=== PATIENT | female | born 2000 | race Caucasian/White ===

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

== ENCOUNTER 2022-11-21 12:34 | Emergency (ER) | payer OTHER, SELFPAY ==
[2022-11-21 12:50] VITALS: BP 107/68; PULSE 66; RESP 17; TEMP 36.2; O2SAT 99; BMI 20.4
--- NOTE | 2022-11-21 12:50 | ED.ABDPAIN ---
HPI - Abdominal Pain General Chief Complaint: Abdominal Pain Stated Complaint: abd pain Time Seen by Provider: 11/21/22 16:16 Source: patient and old records reviewed Mode of arrival: ambulatory Limitations: no limitations History of Present Illness HPI narrative: hx of cyclical vomiting sick x 1 week still smokes due to anxiety - + n/v uses hot showers, has a new prescriber and is starting medications. aware of THC causing this feels terrible and weak. wants help. patient is very remorseful but feels dehydrated. she is trying to stop smoking. typical bout for her [place] elicited complaint: abdominal pain Pertinent past history: other (cyclical vomiting) Onset (ago): week(s) (1) Pain Consistency: constant Location: epigastric Severity: moderate Quality: cramping and aching Radiation: none Migration to: no migration Exacerbating factors: eating and movement Relieving factors: nothing Context: history of similar episodes Associated symptoms: nausea, vomiting and anorexia Related Data Previous Rx's Medication Instructions Recorded mirtazapine 15 mg tablet 15 mg PO BEDTIME #30 tabs 12/30/21 quetiapine 25 mg tablet 25 mg PO BEDTIME #30 tabs 12/30/21 ondansetron 4 mg disintegrating 4 mg PO Q8H PRN nausea and 11/21/22 tablet vomiting #20 tabs Allergies Allergy/AdvReac Type Severity Reaction Status Date / Time Penicillins [PENICILLINS] Allergy Intermediate ITCHY RED Verified 10/08/20 04:06 HIVES. Review of Systems Review of Systems Constitutional : No Weight loss, No Fever, No Chills ENT/Mouth : No sore throat, No Rhinorrhea Eyes: No Swelling, No Redness Cardiovascular : No Chest Pain, No SOB, NoEdema Respiratory : No Cough, No Sputum, No Wheezing Gastrointestinal : Positive Nausea, Positive Vomiting, no Diarrhea, positive abdominal Pain, No Hematochezia, No Melena Genitourinary : No Dysuria, No Urinary Frequency, No Hematuria, No Urgency Musculoskeletal : No joint pain, No Myalgias, No Joint Swelling Skin : No Skin Lesions, No rash Neuro : No Weakness, No Numbness, No Dizziness, No Headache Psych : No Anxiety/Panic, No Depression All other systems reviewed and are negative. [facility] Past Medical History Attestation statement: The following information was validated with the patient. Medical History Cannabinoid hyperemesis syndrome History of kidney stones PCOS (polycystic ovarian syndrome) Surgical History History of ankle surgery History of eye surgery History of wisdom tooth extraction Social History Social History Household Members: Other Household Members Other:: Father Alcohol intake: current Alcohol intake frequency: holidays/special occasions only Patient Tobacco Use Status: Never used Tobacco Tobacco use type: Smokeless Tobacco Second Hand Smoke Exposure: No Use of substances other than those prescribed or required for medical reasons: Yes Substance Use Type: Marijuana Substance Use Frequency: Daily Advance Directives: No Advance Directives Information Provided: Yes Physical Exam ED Vital Signs: Vital Signs - 24 hr 11/21/22 12:50 11/21/22 15:15 Temperature 97.2 F 98.8 F Pulse Rate 66 61 Respiratory Rate 17 18 Blood Pressure 107/68 118/65 Pulse Oximetry 99 98 Oxygen Delivery Method Room Air Room Air BMI result Body Mass Index 20.4 Appearance: Alert. Oriented X3. No acute distress. Eyes: Pupils equal, round and reactive to light. ENT: Pharynx dry MM Neck: Normal inspection. Neck supple. CVS: Normal heart rate and rhythm. Pulses normal. Respiratory: No respiratory distress. Breath sounds normal. Abdomen: Soft and mild epigastric ttp no rebound Skin: Skin warm and dry. Normal skin color. Extremities: No lower extremity edema. No calf ttp Neuro: Oriented X 3. No motor deficit. No sensory deficit. Course Course Course Narrative: This is an RME: Additional HPI, ROS, PE not included below will be deferred to primary provider. Patient is a 22-year-old female who presents emergency department for evaluation of abdominal pain, nausea, vomiting, poor PO intake for the past week. Reports known history of cannabinoid hyperemesis syndrome, she was trying to avoid coming back to emergency department for her symptoms but they are becoming unbearable, she continues to smoke marijuana despite knowing this. Denies fever, upper respiratory symptoms. Plan: labs, U/A, hCG, placed in waiting room pending bed availability Reevaluation(s) Reevaluation #1: feels better stable for DC Medical Decision Making Medical Decision Making MDM Narrative: 22 yo female with hx of THC induced cyclical vomiting syndrome coming in with n/v typical and epigastric pain that responds to hot showers at this time will obtain basic labs and give IVF and hydrate will provide supportive medications. the patient has no localizing symptoms to suggest appendicitis or cholecystitis. Differential Diagnosis Differential Diagnoses: The differential diagnosis associated with the presentation includes anxiety, viral syndrome, THC induced vomiting syndrome Admission/Observation Consideration of admission/observation: Escalation of care including admission/observation considered able to tolerate PO labs stable VS stable can be managed as outpatient Lab Data MDM Lab Attestation statement: I reviewed the patient's lab results. 11/21/22 13:02 11/21/22 13:02 Labs: Lab Results 11/21/22 11/21/22 11/21/22 Range/Units 13:02 13:02 13:02 WBC 8.8 (4.8-10.8) X10*3/uL RBC 4.37 (4.20-5.50) X10*6/uL Hgb 14.1 (12.0-16.0) g/dl Hct 41.1 (37.0-47.0) % MCV 94.1 (80.0-98.0) fL MCH 32.3 (27.0-33.0) pg MCHC 34.3 (31.0-35.0) g/dl RDW 11.9 (11.0-16.0) % Plt Count 231 (160-400) X10*3/uL MPV 9.6 (9.4-12.3) fL Immature Gran % (Auto) 0.2 (0.0-0.4) % Neut % (Auto) 88.2 H (45-73) % Lymph % (Auto) 9.7 L (20-40) % [place] % (Auto) 1.6 L (2-11) % Eos % (Auto) 0.0 (0-4) % Baso % (Auto) 0.3 (0-2) % Lymph # (Auto) 0.9 L (1.2-4.9) X10*3/uL [place] # (Auto) 0.1 (0.1-1.2) X10*3/uL Eos # (Auto) 0.0 (0.0-0.4) X10*3/uL Baso # (Auto) 0.0 (0.0-0.2) X10*3/uL Abs Immat Gran (auto) 0.02 (0.00-0.03) X10*3/uL Absolute Neuts (auto) 7.7 (2.0-8.3) x10*3/uL Absolute Nucleated RBC 0.000 (0.0-0.012) X10*3/uL Nucleated RBC % (auto) 0.0 (0.0-0.2) /100WBC Sodium 142 (135-145) mmol/L Potassium 4.6 D (3.3-5.1) mmol/L Chloride 108 (96-108) mmol/L Carbon Dioxide 22 (22-29) mmol/L Anion Gap 17 (12-20) BUN 10 (9-16) mg/dL Creatinine 0.77 (0.5-1.4) mg/dL Estim Creat Clear Calc 92.1 Estimated GFR > 60 Random Glucose 117 H (60-115) mg/dL Calcium 10.3 H (8.4-10.2) mg/dL Total Bilirubin 0.9 (0.0-1.0) mg/dL AST 13 (5-31) U/L ALT 10 (0-31) U/L Alkaline Phosphatase 61 (39-117) U/L Total Protein 7.9 (6.5-8.0) g/dL Albumin 5.0 (3.5-5.0) g/dL Lipase 18 (8-78) U/L Urine Color Yellow Urine Appearance Cloudy Urine pH 6.5 (5.0-9.0) Ur Specific [place] >= 1.030 H (1.005-1.025) Urine Protein Trace (Neg-Trace) mg/dL Urine Glucose (UA) Negative (Negative) mg/dL Urine Ketones 80 (Negative) mg/dL Urine Blood Large (3+) H (Negative) Urine Nitrite Negative (Negative) Ur Leukocyte Esterase Negative (Negative) Urine RBC >20 H (0-2) /HPF Urine WBC 0-5 (0-5) /HPF Ur Squamous Epith Cells 6-10 (0-2) /HPF Urine Bacteria None Seen (None Seen) Hyaline Casts 3-5 (0-2) /LPF Urine Test (NEGATIVE) 11/21/22 Range/Units 13:02 WBC (4.8-10.8) X10*3/uL RBC (4.20-5.50) X10*6/uL Hgb (12.0-16.0) g/dl Hct (37.0-47.0) % MCV (80.0-98.0) fL MCH (27.0-33.0) pg MCHC (31.0-35.0) g/dl RDW (11.0-16.0) % Plt Count (160-400) X10*3/uL MPV (9.4-12.3) fL Immature Gran % (Auto) (0.0-0.4) % Neut % (Auto) (45-73) % Lymph % (Auto) (20-40) % [place] % (Auto) (2-11) % Eos % (Auto) (0-4) % Baso % (Auto) (0-2) % Lymph # (Auto) (1.2-4.9) X10*3/uL [place] # (Auto) (0.1-1.2) X10*3/uL Eos # (Auto) (0.0-0.4) X10*3/uL Baso # (Auto) (0.0-0.2) X10*3/uL Abs Immat Gran (auto) (0.00-0.03) X10*3/uL Absolute Neuts (auto) (2.0-8.3) x10*3/uL Absolute Nucleated RBC (0.0-0.012) X10*3/uL Nucleated RBC % (auto) (0.0-0.2) /100WBC Sodium (135-145) mmol/L Potassium (3.3-5.1) mmol/L Chloride (96-108) mmol/L Carbon Dioxide (22-29) mmol/L Anion Gap (12-20) BUN (9-16) mg/dL Creatinine (0.5-1.4) mg/dL Estim Creat Clear Calc Estimated GFR Random Glucose (60-115) mg/dL Calcium (8.4-10.2) mg/dL Total Bilirubin (0.0-1.0) mg/dL AST (5-31) U/L ALT (0-31) U/L Alkaline Phosphatase (39-117) U/L Total Protein (6.5-8.0) g/dL Albumin (3.5-5.0) g/dL Lipase (8-78) U/L Urine Color Urine Appearance Urine pH (5.0-9.0) Ur Specific [place] (1.005-1.025) Urine Protein (Neg-Trace) mg/dL Urine Glucose (UA) (Negative) mg/dL Urine Ketones (Negative) mg/dL Urine Blood (Negative) Urine Nitrite (Negative) Ur Leukocyte Esterase (Negative) Urine RBC (0-2) /HPF Urine WBC (0-5) /HPF Ur Squamous Epith Cells (0-2) /HPF Urine Bacteria (None Seen) Hyaline Casts (0-2) /LPF Urine Test NEGATIVE (NEGATIVE) Independent Historian Clinical information obtained from an independent historian. History obtained from or confirmed by: Spouse External Record Review External record reviewed: Inpatient record and Prior outpatient labs Prescription Management I considered prescription management with: Other (ODT zofran ) Medications Administered Discontinued Medications Generic Name Dose Route Start Last Admin Trade Name Paulq PRN Reason Stop Dose Admin Diphenhydramine HCl 25 mg 11/21/22 16:28 11/21/22 17:00 Diphenhydramine Hcl 50 Mg/Ml Vial IVPUSH 11/21/22 16:29 25 mg ONCE ONE Administration Haloperidol Lactate 5 mg 11/21/22 18:01 11/21/22 18:33 Haloperidol Lactate 5 Mg/Ml Vial IM 11/21/22 18:02 5 mg STAT STA Administration Sodium Chloride 1,000 mls @ 999 mls/hr 11/21/22 16:30 11/21/22 17:00 Ns IVCONT 11/21/22 17:30 999 mls/hr .Q1H1M CRISTINO Administration Sodium Chloride 1,000 mls @ 999 mls/hr 11/21/22 16:45 11/21/22 18:36 Ns IV 11/21/22 17:45 999 mls/hr .Q1H1M CRISTINO Administration Ketorolac Tromethamine 15 mg 11/21/22 16:33 11/21/22 17:00 Ketorolac Tromethamine 15 Mg/Ml Vial IVPUSH 11/21/22 16:34 15 mg ONCE ONE Administration Metoclopramide HCl 10 mg 11/21/22 16:28 11/21/22 17:00 Metoclopramide Hcl 10 Mg/2 Ml Vial IVPUSH 11/21/22 16:29 10 mg ONCE ONE Administration Discharge Plan Discharge Clinical Impression: Cyclical vomiting Patient Disposition: Home, Self-Care Instructions: Acute Nausea and Vomiting (ED) Additional Instructions: return for worsening symptoms, pain, fevers, black or bloody stools slowly advance diet as tolerated over the next couple of days Prescriptions: New ondansetron 4 mg tablet,disintegrating 4 mg PO Q8H PRN (Reason: nausea and vomiting) Qty: 20 0RF No Action mirtazapine 15 mg tablet 15 mg PO BEDTIME Qty: 30 0RF quetiapine 25 mg tablet 25 mg PO BEDTIME Qty: 30 0RF
[2022-11-21 13:08] LABS: MANUAL DIFF FLAG NO
[2022-11-21 13:10] LABS: Basophils Percent Auto 0.3 % (0-2); Hematocrit 41.1 % (37.0-47.0); Hemoglobin 14.1 g/dl (12.0-16.0); Imm Gran Abs Auto 0.02 X10*3/uL (0.00-0.03); Imm Gran Pct Auto 0.2 % (0.0-0.4); Lymphocytes Absolute Auto 0.9 X10*3/uL (1.2-4.9); Lymphocytes Percent Auto 9.7 % (20-40); Mean Corpuscular HGB Conc 34.3 g/dl (31.0-35.0); Mean Corpuscular Hemoglobin 32.3 pg (27.0-33.0); Mean Corpuscular Volume 94.1 fL (80.0-98.0); Mean Platelet Volume 9.6 fL (9.4-12.3); Monocytes Absolute Auto 0.1 X10*3/uL (0.1-1.2); Monocytes Percent Auto 1.6 % (2-11); Neutrophils Absolute Auto 7.7 x10*3/uL (2.0-8.3); Neutrophils Percent Auto 88.2 % (45-73); Platelet Count 231 X10*3/uL (160-400); Red Blood Count 4.37 X10*6/uL (4.20-5.50); Red Cell Distribution Width 11.9 % (11.0-16.0); White Blood Count 8.8 X10*3/uL (4.8-10.8)
[2022-11-21 13:19] LABS: Appearance Urine Cloudy; Color Urine Yellow; Glucose Urine UA Negative (Negative); Leukocyte Esterase Urine Negative (Negative); Nitrite Urine Negative (Negative); PH 6.5 (5.0-9.0); Specific Gravity - Urine >= 1.030 (1.005-1.025); UMIC TRIGGER UACC YES; Urine Blood Large (3+) (Negative); Urine Ketones 80 mg/dL (Negative); Urine Protein Trace mg/dL (Neg-Trace)
[2022-11-21 13:22] LABS: UPreg QC Valid YES; Urine Pregnancy NEGATIVE (NEGATIVE)
[2022-11-21 13:24] LABS: Bacteria Urine None Seen (None Seen); RBC Urine >20 /HPF (0-2); WBC Urine 0-5 /HPF (0-5)
[2022-11-21 13:25] LABS: Alanine Aminotransferase 10 U/L (0-31); Alkaline Phosphatase 61 U/L (39-117); Anion Gap 17 (12-20); Aspartate Amino Transferase 13 U/L (5-31); Bilirubin Total 0.9 mg/dL (0.0-1.0); Blood Urea Nitrogen 10 mg/dL (9-16); Calcium 10.3 mg/dL (8.4-10.2); Carbon Dioxide 22 mmol/L (22-29); Chloride 108 mmol/L (96-108); Creatinine Clr Calc Pharmacy 92.1; Estimated Glomerular Filt Rate > 60; Glucose Random 117 mg/dL (60-115); Lipase 18 U/L (8-78); Potassium 4.6 mmol/L (3.3-5.1); Sodium 142 mmol/L (135-145); Total Protein 7.9 g/dL (6.5-8.0)
[2022-11-21 15:15] VITALS: BP 118/65; PULSE 61; RESP 18; TEMP 37.1; O2SAT 98
[2022-11-21] MEDS: Ketorolac Tromethamine 15 MG/ML VIAL IVPUSH (17:00)
[2022-11-21] MEDS: diphenhydrAMINE HCL 50 MG/ML VIAL 25 MG IVPUSH (17:00)
[2022-11-21] MEDS: 0.9 % Sodium Chloride 1,000 ML 999 ML IVCONT (17:00)
[2022-11-21] MEDS: Metoclopramide HCl 10 MG/2 ML VIAL IVPUSH (17:00)
[2022-11-21] MEDS: Haloperidol Lactate 5 MG/ML VIAL IM (18:33)
[2022-11-21] MEDS: 0.9 % Sodium Chloride 1,000 ML 999 ML IV (18:36)
--- NOTE | 2022-11-21 18:40 | PC.NURSE ---
patient sleeping in bed, easily awakes to verbal stimulai. patient respirations equal and unlabored. patient has not had any more vomiting but states she is still nauseas
--- NOTE | 2022-11-21 19:10 | PC.NURSE ---
pt currently sleeping, easily woken. states nausea now resolved. agreeable to dc.
== END 2022-11-21 19:53 | disposition home or self-care (01) ==
PROVIDERS: Nurse Practitioner Family; Emergency Provider Emergency Medicine
DX: R11.15 Cyclical vomiting syndrome unrelated to migraine (principal); F12.90 Cannabis use, unspecified, uncomplicated; R10.13 Epigastric pain
CPT/HCPCS: 36415; 80053; 81001; 81025; 83690; 85025; 96361; 96372; 96374; 96375; 99284; 99285; J1200; J1885; J2765

== ENCOUNTER 2022-11-26 18:18 | Emergency (ER) | payer OTHER, SELFPAY ==
--- NOTE | ~2022-11-26 | CT_ITS ---
EXAMINATION: CT ABDOMEN AND PELVIS WITHOUT CONTRAST CLINICAL INFORMATION: Abdominal pain. COMPARISON: CT abdomen/pelvis 11/23/2021. TECHNIQUE: Multidetector volumetric imaging was performed from the superior aspect of the liver through the pubic symphysis. Sagittal and coronal reformatted images were obtained on the technologist's workstation. This CT examination was performed using dose optimization techniques as appropriate, variously including the following: *Automated exposure control *Adjustment of mA and/or kV according to patient size (this includes techniques or standardized protocols for targeted exams where dose is matched to indication/reason for exam; i.e. extremities or head) *Use of iterative reconstruction technique DLP: 283 mGy-cm FINDINGS: The lack of intravenous contrast limits evaluation of the solid visceral organs including the liver, spleen, pancreas, and kidneys. LUNG BASES: No focal consolidation or pleural effusion. LIVER, GALLBLADDER, AND BILIARY TREE: The liver is enlarged measuring 19 cm craniocaudally, unchanged. Otherwise, liver is normal in shape and attenuation. No focal hepatic lesion or biliary ductal dilatation is present. The gallbladder is unremarkable with no evidence of radiopaque gallstones, gallbladder wall thickening, or obvious pericholecystic inflammatory changes. PANCREAS: Limited noncontrast examination. No peripancreatic free fluid or fat stranding. No main duct dilatation. SPLEEN: Unremarkable. ADRENAL GLANDS: Unremarkable. KIDNEYS AND URETERS: Stable 5 mm calculus in the upper left kidney, 774 Hounsfield units located at 5 cm from the skin surface of the posterior axillary line. Similar degree of subtle hyperattenuation of the renal pyramids bilaterally. No hydronephrosis. No perinephric fat stranding. BLADDER: Decompressed limiting its evaluation. GASTROINTESTINAL TRACT: The small and large bowel are unremarkable. The appendix is unremarkable. ABDOMINAL WALL: No significant hernia is appreciated. LYMPH NODES: Lack of IV contrast and paucity of abdominal fat limits evaluation of lymph nodes, however accounting for these limitations, no discrete lymphadenopathy is noted. Mild diffuse peritoneal/mesenteric fatty haziness, for instance visualize superior to the urinary bladder and in the left lower abdomen on coronal image 27 series 6 is unchanged dating back to 10/08/2020. VASCULAR: Normal caliber abdominal aorta. PELVIC VISCERA: IUD in satisfactory positioning within the endometrial cavity. The ovaries are not well delineated in view of overlying loops of small bowel and lack of IV contrast, further evaluation with a pelvic ultrasound could be obtained as clinically indicated. OSSEOUS STRUCTURES: No acute or aggressive appearing osseous findings. CT/CT abdomen pelvis wo IV con IMPRESSION: 1. Stable nonobstructing 5 mm calculus in the upper left kidney. 2. Unchanged chronic hyperattenuation of the renal pyramids bilaterally could be seen with medullary nephrocalcinosis/medullary sponge kidney. 3. Unchanged mild hepatomegaly. 4. Chronic nonspecific mild diffuse peritoneal/mesenteric fatty haziness. 5. The ovaries are not well delineated in view of overlying loops of small bowel and lack of IV contrast, further evaluation with a pelvic ultrasound could be obtained as clinically indicated.
[2022-11-26 19:41] VITALS: BP 121/76; PULSE 65; RESP 18; TEMP 36.9; O2SAT 96; BMI 20.1
--- NOTE | 2022-11-26 19:42 | ED.GENADULT ---
HPI - General Adult General Chief complaint: Abdominal Pain Stated complaint: lower abd pain Time Seen by Provider: 11/26/22 21:21 Source: patient, RN notes reviewed and old records reviewed Mode of arrival: ambulatory Limitations: no limitations History of Present Illness HPI narrative: 22-year-old female with past medical history significant for polycystic ovarian syndrome, depression presents for evaluation of vomiting. Patient reports that she has been vomiting on and off for the last week She was seen here 5 days ago for a similar complaint and was diagnosed with cyclical vomiting She was ultimately discharged home with Isabelle Patient reports that she was doing well until she recently smoked a lot of marijuana She is unsure of the specific cause of her symptoms She reports mild abdominal pain Patient reports that her period just started but she denies any abnormal vaginal discharge She has no other complaints or concerns at this time Related Data Previous Rx's Medication Instructions Recorded mirtazapine 15 mg tablet 15 mg PO BEDTIME #30 tabs 12/30/21 quetiapine 25 mg tablet 25 mg PO BEDTIME #30 tabs 12/30/21 ondansetron 4 mg disintegrating 4 mg PO Q8H PRN nausea and 11/21/22 tablet vomiting #20 tabs promethazine 12.5 mg rectal 12.5 mg OK Q6H PRN nausea and 11/26/22 suppository vomiting #12 ea Allergies Allergy/AdvReac Type Severity Reaction Status Date / Time Penicillins [PENICILLINS] Allergy Intermediate ITCHY RED Verified 10/08/20 04:06 HIVES. Review of Systems Constitutional: Constitutional: Reports as per HPI, Denies fatigue, Denies fever(s) and Denies headache(s) ENT: Denies headache(s) Cardiovascular: Cardiovascular: Denies chest pain and Denies dyspnea Respiratory: Respiratory: Denies cough and Denies dyspnea Gastrointestinal: Gastrointestinal: Denies constipation Genitourinary: Genitourinary: Denies dysuria Neurologic: Denies headache(s) and Denies focal weakness Endocrine: Endocrine: Denies fatigue COUNT INCLUDES THE [facility] Past Medical History Medical History Cannabinoid hyperemesis syndrome History of kidney stones PCOS (polycystic ovarian syndrome) Surgical History History of ankle surgery History of eye surgery History of wisdom tooth extraction Social History Social History Household Members: Other Household Members Other:: Father Alcohol intake: current Alcohol intake frequency: holidays/special occasions only Patient Tobacco Use Status: Never used Tobacco Tobacco use type: Smokeless Tobacco Second Hand Smoke Exposure: No Substance Use Type: Marijuana Advance Directives: No Advance Directives Information Provided: Yes Physical Exam ED Vital Signs: Vital Signs - 24 hr 11/26/22 19:41 11/26/22 21:17 Temperature 98.4 F 99.0 F Pulse Rate 65 63 Respiratory Rate 18 16 Blood Pressure 121/76 120/74 Pulse Oximetry 96 98 Oxygen Delivery Method Room Air Room Air BMI result Body Mass Index 20.1 Const General: healthy appearing, comfortable, no acute distress, alert and awake Nutritional Appearance: well nourished Orientation/consciousness: patient oriented x3 HENMT Head: Yes normocephalic and Yes atraumatic Eyes Eyelids: Yes eyelids normal Conjunctivae: conjunctivae normal Sclerae: sclerae normal Corneas: corneas normal Pupils: Equal, round and reactive pupils present EOM: EOMs intact bilaterally Neck Neck: Yes full ROM Resp Effort & Inspection: normal respiratory effort, able to speak in complete sentences and not labored Cardio Rate: regular rate Rhythm: regular rhythm GI Inspection: No distended Palpation (GI): Soft to palpation, not firm, Tenderness to palpation present (GI) in the LUQ, no guarding and not rigid Auscultation: normoactive bowel sounds Skin General skin exam: no rashes or lesions noted and elasticity normal Neuro General: patient oriented x3 Cranial nerves: Yes Equal, round and reactive pupils present and Yes Bilaterally intact EOM present Cognition (Neuro): normal cognition Extrem Other: Moving all extremities well without any obvious deformities Course Course Course Narrative: This is an RME: Additional HPI, ROS, PE not included below will be deferred to primary provider. This is a 4-spyj-zak, hx of cyclical vomiting syndrome and kidney stones, presenting to the emergency department with complaints of left sided abdominal pain. Patient admits to having dark urine and urinary frequency. She has had nausea and vomiting. Was seen here on 11/21 diagnosed with cyclical vomiting. She has a history of kidney stones and states that her symptoms are similar. Vital signs stable Plan: Labs, UA, CT abdomen Reevaluation(s) Reevaluation #1: Patient reports feeling much better, she has not vomited since before treatment. Will discharge the patient home with rectal Phenergan. She has ODT Zofran, she is instructed to try that 1st and if she is still vomiting afterwards she may try the Phenergan. Time: 23:31 Medications Administered Discontinued Medications Generic Name Dose Route Start Last Admin Trade Name Samara PRN Reason Stop Dose Admin Diphenhydramine HCl 25 mg 11/26/22 21:26 11/26/22 21:55 Diphenhydramine Hcl 50 Mg/Ml Vial IVPUSH 11/26/22 21:27 25 mg ONCE ONE Administration Haloperidol Lactate 5 mg 11/26/22 21:26 11/26/22 21:56 Haloperidol Lactate 5 Mg/Ml Vial IM 11/26/22 21:27 5 mg STAT STA Administration Sodium Chloride 1,000 mls @ 999 mls/hr 11/26/22 21:30 11/26/22 21:56 Ns IV 11/26/22 22:30 999 mls/hr .Q1H1M CRISTINO Administration Ondansetron HCl 4 mg 11/26/22 21:21 11/26/22 21:56 Ondansetron Hcl 4 Mg/2 Ml Vial IVPUSH 11/26/22 21:22 4 mg ONCE ONE Administration Medical Decision Making Medical Decision Making [facility] Narrative: 22 Year old female presents for evaluation of vomiting. She was seen here recently for same. I reviewed that chart. The patient appears quite well with stable vital signs. Her abdominal exam is reassuring. She does have some mild tenderness the left upper quadrant but is nondistended, no guarding or firmness to the abdomen. Her labs are reassuring. Will treat her with Zofran, Haldol and Benadryl. Patient will be re-evaluated. That smoking marijuana. I do not see any emergent indication for imaging at this time Differential Diagnosis Differential Diagnoses: The differential diagnosis associated with the presentation includes Cyclic vomiting syndrome Acute nausea and vomiting Gastroenteritis Ileus Obstruction Lab Data [facility] Lab Attestation statement: I reviewed the patient's lab results. No leukocytosis with a white count 8.6, essentially unchanged from 5 days ago. No anemia. Electrolytes within normal limits, renal function within normal limits. The patient is not 11/26/22 20:09 11/26/22 20:09 Labs: Lab Results 11/26/22 11/26/22 11/26/22 Range/Units 20:09 20:09 20:09 WBC 8.6 (4.8-10.8) X10*3/uL RBC 4.75 (4.20-5.50) X10*6/uL Hgb 15.4 (12.0-16.0) g/dl Hct 43.5 (37.0-47.0) % MCV 91.6 (80.0-98.0) fL MCH 32.4 (27.0-33.0) pg MCHC 35.4 H (31.0-35.0) g/dl RDW 12.0 (11.0-16.0) % Plt Count 246 (160-400) X10*3/uL MPV 9.4 (9.4-12.3) fL Immature Gran % (Auto) 0.1 (0.0-0.4) % Neut % (Auto) 75.5 H (45-73) % Lymph % (Auto) 19.0 L (20-40) % Bartholomew % (Auto) 5.1 (2-11) % Eos % (Auto) 0.1 (0-4) % Baso % (Auto) 0.2 (0-2) % Lymph # (Auto) 1.6 (1.2-4.9) X10*3/uL Bartholomew # (Auto) 0.4 (0.1-1.2) X10*3/uL Eos # (Auto) 0.0 (0.0-0.4) X10*3/uL Baso # (Auto) 0.0 (0.0-0.2) X10*3/uL Abs Immat Gran (auto) 0.01 (0.00-0.03) X10*3/uL Absolute Neuts (auto) 6.5 (2.0-8.3) x10*3/uL Absolute Nucleated RBC 0.000 (0.0-0.012) X10*3/uL Nucleated RBC % (auto) 0.0 (0.0-0.2) /100WBC Sodium 140 (135-145) mmol/L Potassium 4.1 (3.3-5.1) mmol/L Chloride 105 (96-108) mmol/L Carbon Dioxide 24 (22-29) mmol/L Anion Gap 15 (12-20) BUN 9 (9-16) mg/dL Creatinine 0.76 (0.5-1.4) mg/dL Estim Creat Clear Calc 93.0 Estimated GFR > 60 Random Glucose 89 (60-115) mg/dL Calcium 10.0 (8.4-10.2) mg/dL Total Bilirubin 1.0 (0.0-1.0) mg/dL Direct Bilirubin 0.3 (0.0-0.5) mg/dL AST 11 (5-31) U/L ALT 9 (0-31) U/L Alkaline Phosphatase 57 (39-117) U/L Total Protein 7.7 (6.5-8.0) g/dL Albumin 4.8 (3.5-5.0) g/dL Lipase 16 (8-78) U/L Beta HCG, Quant mIU/mL Urine Color Yellow Urine Appearance Cloudy Urine pH 6.0 (5.0-9.0) Ur Specific Elk 1.025 (1.005-1.025) Urine Protein Negative (Neg-Trace) mg/dL Urine Glucose (UA) Negative (Negative) mg/dL Urine Ketones 80 (Negative) mg/dL Urine Blood Moderate (2+) H (Negative) Urine Nitrite Negative (Negative) Ur Leukocyte Esterase Trace H (Negative) Urine RBC >20 H (0-2) /HPF Urine WBC 6-10 H (0-5) /HPF Ur Squamous Epith Cells 6-10 (0-2) /HPF Urine Bacteria None Seen (None Seen) Hyaline Casts 3-5 (0-2) /LPF Urine Test (NEGATIVE) 11/26/22 11/26/22 Range/Units 20:14 20:14 WBC (4.8-10.8) X10*3/uL RBC (4.20-5.50) X10*6/uL Hgb (12.0-16.0) g/dl Hct (37.0-47.0) % MCV (80.0-98.0) fL MCH (27.0-33.0) pg MCHC (31.0-35.0) g/dl RDW (11.0-16.0) % Plt Count (160-400) X10*3/uL MPV (9.4-12.3) fL Immature Gran % (Auto) (0.0-0.4) % Neut % (Auto) (45-73) % Lymph % (Auto) (20-40) % Bartholomew % (Auto) (2-11) % Eos % (Auto) (0-4) % Baso % (Auto) (0-2) % Lymph # (Auto) (1.2-4.9) X10*3/uL Bartholomew # (Auto) (0.1-1.2) X10*3/uL Eos # (Auto) (0.0-0.4) X10*3/uL Baso # (Auto) (0.0-0.2) X10*3/uL Abs Immat Gran (auto) (0.00-0.03) X10*3/uL Absolute Neuts (auto) (2.0-8.3) x10*3/uL Absolute Nucleated RBC (0.0-0.012) X10*3/uL Nucleated RBC % (auto) (0.0-0.2) /100WBC Sodium (135-145) mmol/L Potassium (3.3-5.1) mmol/L Chloride (96-108) mmol/L Carbon Dioxide (22-29) mmol/L Anion Gap (12-20) BUN (9-16) mg/dL Creatinine (0.5-1.4) mg/dL Estim Creat Clear Calc Estimated GFR Random Glucose (60-115) mg/dL Calcium (8.4-10.2) mg/dL Total Bilirubin (0.0-1.0) mg/dL Direct Bilirubin (0.0-0.5) mg/dL AST (5-31) U/L ALT (0-31) U/L Alkaline Phosphatase (39-117) U/L Total Protein (6.5-8.0) g/dL Albumin (3.5-5.0) g/dL Lipase (8-78) U/L Beta HCG, Quant < 2 mIU/mL Urine Color Urine Appearance Urine pH (5.0-9.0) Ur Specific Elk (1.005-1.025) Urine Protein (Neg-Trace) mg/dL Urine Glucose (UA) (Negative) mg/dL Urine Ketones (Negative) mg/dL Urine Blood (Negative) Urine Nitrite (Negative) Ur Leukocyte Esterase (Negative) Urine RBC (0-2) /HPF Urine WBC (0-5) /HPF Ur Squamous Epith Cells (0-2) /HPF Urine Bacteria (None Seen) Hyaline Casts (0-2) /LPF Urine Test NEGATIVE (NEGATIVE) Discharge Plan Discharge Clinical Impression: Cyclical vomiting Patient Disposition: Home, Self-Care Instructions: Cyclic Vomiting Syndrome (ED) Additional Instructions: Use the Zofran that your previously prescribed for any further nausea or vomiting You may use the Phenergan suppositories if her symptoms do not improve Avoid smoking marijuana Drink small sips, frequently throughout the day to stay well hydrated Follow-up with your primary doctor Prescriptions: New promethazine 12.5 mg suppository 12.5 mg OK Q6H PRN (Reason: nausea and vomiting) Qty: 12 0RF Rx Instructions: Do not take more than 4 doses in 1 day No Action mirtazapine 15 mg tablet 15 mg PO BEDTIME Qty: 30 0RF quetiapine 25 mg tablet 25 mg PO BEDTIME Qty: 30 0RF ondansetron 4 mg tablet,disintegrating 4 mg PO Q8H PRN (Reason: nausea and vomiting) Qty: 20 0RF Stand Alone Forms: Work/School Release
[2022-11-26 20:18] LABS: MANUAL DIFF FLAG NO
[2022-11-26 20:22] LABS: Basophils Percent Auto 0.2 % (0-2); Eosinophils Percent Auto 0.1 % (0-4); Hematocrit 43.5 % (37.0-47.0); Hemoglobin 15.4 g/dl (12.0-16.0); Imm Gran Abs Auto 0.01 X10*3/uL (0.00-0.03); Imm Gran Pct Auto 0.1 % (0.0-0.4); Lymphocytes Absolute Auto 1.6 X10*3/uL (1.2-4.9); Mean Corpuscular HGB Conc 35.4 g/dl (31.0-35.0); Mean Corpuscular Hemoglobin 32.4 pg (27.0-33.0); Mean Corpuscular Volume 91.6 fL (80.0-98.0); Mean Platelet Volume 9.4 fL (9.4-12.3); Monocytes Absolute Auto 0.4 X10*3/uL (0.1-1.2); Monocytes Percent Auto 5.1 % (2-11); Neutrophils Absolute Auto 6.5 x10*3/uL (2.0-8.3); Neutrophils Percent Auto 75.5 % (45-73); Platelet Count 246 X10*3/uL (160-400); Red Blood Count 4.75 X10*6/uL (4.20-5.50); White Blood Count 8.6 X10*3/uL (4.8-10.8)
[2022-11-26 20:24] LABS: Appearance Urine Cloudy; Color Urine Yellow; Glucose Urine UA Negative (Negative); Leukocyte Esterase Urine Trace (Negative); Nitrite Urine Negative (Negative); Specific Gravity - Urine 1.025 (1.005-1.025); UMIC TRIGGER UACC YES; Urine Blood Moderate (2+) (Negative); Urine Ketones 80 mg/dL (Negative); Urine Protein Negative (Neg-Trace)
[2022-11-26 20:28] LABS: UPreg QC Valid YES; Urine Pregnancy NEGATIVE (NEGATIVE)
[2022-11-26 20:35] LABS: Alanine Aminotransferase 9 U/L (0-31); Albumin Level 4.8 g/dL (3.5-5.0); Alkaline Phosphatase 57 U/L (39-117); Anion Gap 15 (12-20); Aspartate Amino Transferase 11 U/L (5-31); Bilirubin Direct 0.3 mg/dL (0.0-0.5); Blood Urea Nitrogen 9 mg/dL (9-16); Carbon Dioxide 24 mmol/L (22-29); Chloride 105 mmol/L (96-108); Estimated Glomerular Filt Rate > 60; Glucose Random 89 mg/dL (60-115); Lipase 16 U/L (8-78); Potassium 4.1 mmol/L (3.3-5.1); Sodium 140 mmol/L (135-145); Total Protein 7.7 g/dL (6.5-8.0)
[2022-11-26 20:42] LABS: HCG Quantitative < 2 mIU/mL
[2022-11-26 20:59] LABS: Bacteria Urine None Seen (None Seen); RBC Urine >20 /HPF (0-2); UACC Culture Trigger YES
[2022-11-26 21:17] VITALS: BP 120/74; PULSE 63; RESP 16; TEMP 37.2; O2SAT 98
[2022-11-26] MEDS: diphenhydrAMINE HCL 50 MG/ML VIAL 25 MG IVPUSH (21:55)
[2022-11-26] MEDS: Haloperidol Lactate 5 MG/ML VIAL IM (21:56)
[2022-11-26] MEDS: 0.9 % Sodium Chloride 1,000 ML 999 ML IV (21:56)
[2022-11-26] MEDS: ondansetron HCL 4 MG/2 ML VIAL IVPUSH (21:56)
== END 2022-11-26 23:54 | disposition home or self-care (01) ==
PROVIDERS: Physician Assistant Medical; Emergency Provider Emergency Medicine Emergency Medical Services
DX: R11.15 Cyclical vomiting syndrome unrelated to migraine (principal); R10.2 Pelvic and perineal pain; F12.99 Cannabis use, unspecified with unspecified cannabis-induced disorder; Z79.899 Other long term (current) drug therapy
CPT/HCPCS: 36415; 74176; 80048; 80076; 81001; 81025; 83690; 84702; 85025; 87086; 96361; 96372; 96374; 96375; 99284; J1200; J2405

== ENCOUNTER 2023-01-04 01:57 | Emergency (ER) | payer OTHER, SELFPAY ==
--- NOTE | ~2023-01-04 | XR_ITS ---
EXAMINATION: XR KNEE, LEFT CLINICAL INFORMATION: Pain. COMPARISON: None available. TECHNIQUE: Four views of the left knee. FINDINGS: No fracture or joint effusion. Alignment is anatomic. Joint spaces are maintained. No abnormal soft tissue calcification. XR/XR knee LT 4V IMPRESSION: No significant abnormality identified.
--- NOTE | ~2023-01-04 | XR_ITS ---
EXAMINATION: XR FOREARM, LEFT CLINICAL INFORMATION: Pain. COMPARISON: None available. TECHNIQUE: AP and lateral views of the left forearm were obtained. FINDINGS: The bones and soft tissues are normal. No fracture. Imaged portions of the elbow and wrist are unremarkable. XR/XR forearm LT 2V IMPRESSION: No significant abnormality identified.
[2023-01-04 02:01] VITALS: BP 103/57; PULSE 94; O2SAT 99
--- NOTE | 2023-01-04 02:06 | PC.NURSE ---
pt arrived with a c collar on. pt awake talking alert.
[2023-01-04 02:10] VITALS: BP 116/71; PULSE 80; RESP 12; TEMP 36.7; O2SAT 99; BMI 21.9
[2023-01-04 04:47] VITALS: BP 109/66; PULSE 75; RESP 18; TEMP 36.4; O2SAT 99
[2023-01-04] MEDS: Acetaminophen 325 MG TABLET 650 MG PO (04:48)
--- NOTE | 2023-01-04 04:50 | PC.NURSE ---
Pt self removed c-collar and ambulated with steady to the restroom. Reports pain, 11/26. Medicated with acetaminophen. Pending physician eval.
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
[2023-01-04 06:09] VITALS: BP 115/71; PULSE 74; RESP 12; O2SAT 99
[2023-01-04] MEDS: Ibuprofen 400 MG TABLET PO (06:11)
== END 2023-01-04 06:14 | disposition home or self-care (01) ==
PROVIDERS: Emergency Provider Emergency Medicine Emergency Medical Services
DX: S09.90XA Unspecified injury of head, initial encounter (principal); S00.83XA Contusion of other part of head, initial encounter; S50.12XA Contusion of left forearm, initial encounter; S80.02XA Contusion of left knee, initial encounter; V43.52XA Car driver injured in collision with other type car in traffic accident, initial encounter; Y93.9 Activity, unspecified; Y92.410 Unspecified street and highway as the place of occurrence of the external cause; Y99.9 Unspecified external cause status
CPT/HCPCS: 73090; 73564; 99283; 99284

== ENCOUNTER 2023-10-25 16:50 | Emergency (ER) | payer OTHER, SELFPAY ==
--- NOTE | 2023-10-25 | ECG_ITS ---
Test Reason : nausea Blood Pressure : / mmHG Vent. Rate : 075 BPM Atrial Rate : 088 BPM P-R Int : 134 ms QRS Dur : 074 ms QT Int : 360 ms P-R-T Axes : 043 067 036 degrees QTc Int : 402 ms Sinus rhythm with marked sinus arrhythmia Cannot rule out Anterior infarct , age undetermined Abnormal ECG No previous ECGs available Referred By: Generic ED Physician Electronically Signed By:Elmo Ruiz
--- NOTE | ~2023-10-25 | CT_ITS ---
EXAMINATION: CT ABDOMEN AND PELVIS WITH CONTRAST CLINICAL INFORMATION: Epigastric pain. COMPARISON: None available. TECHNIQUE: Multidetector volumetric images were obtained from the superior aspect of the liver through the pubic symphysis following administration 85 mL of Omnipaque 350 intravenous contrast. Sagittal and coronal reformatted images were obtained on the technologist's workstation. Oral contrast: No This CT examination was performed using dose optimization techniques as appropriate, variously including the following: *Automated exposure control *Adjustment of mA and/or kV according to patient size (this includes techniques or standardized protocols for targeted exams where dose is matched to indication/reason for exam; i.e. extremities or head) *Use of iterative reconstruction technique DLP: 330 mGy-cm FINDINGS: LUNG BASES: The visualized lung bases are unremarkable. LIVER, GALLBLADDER, AND BILIARY TREE: The liver is normal in size, shape, and attenuation. No focal hepatic lesion or biliary ductal dilatation is present. The gallbladder is unremarkable with no evidence of radiopaque gallstones, gallbladder wall thickening, or obvious pericholecystic inflammatory changes. PANCREAS: Unremarkable. SPLEEN: Unremarkable. ADRENAL GLANDS: Unremarkable. KIDNEYS AND URETERS: The kidneys are normal in size, shape, and attenuation. There is a 6 mm calculus midpole left kidney. There is no hydronephrosis. BLADDER: Unremarkable. GASTROINTESTINAL TRACT: The small and large bowel are unremarkable. The appendix is unremarkable. ABDOMINAL WALL: No significant hernia is appreciated. LYMPH NODES: Normal. VASCULAR: Unremarkable. PELVIC VISCERA: There is an IUD in place. OSSEOUS STRUCTURES: Unremarkable. CT/CT abdomen pelvis w IV con IMPRESSION: 1. No acute findings in the abdomen or pelvis. 2. 6 mm nonobstructing calculus midpole left kidney. Fleischner guidelines were followed.
[2023-10-25 17:10] VITALS: BP 121/79; PULSE 97; RESP 20; TEMP 37.2; O2SAT 100; BMI 23.3
[2023-10-25 17:35] LABS: MANUAL DIFF FLAG NO
[2023-10-25 17:39] LABS: Basophils Percent Auto 0.2 % (0-2); Hematocrit 39.7 % (37.0-47.0); Imm Gran Abs Auto 0.03 X10*3/uL (0.00-0.03); Imm Gran Pct Auto 0.3 % (0.0-0.4); Lymphocytes Absolute Auto 1.3 X10*3/uL (1.2-4.9); Lymphocytes Percent Auto 13.3 % (20-40); Mean Corpuscular HGB Conc 35.3 g/dl (31.0-35.0); Mean Corpuscular Hemoglobin 32.9 pg (27.0-33.0); Mean Corpuscular Volume 93.2 fL (80.0-98.0); Mean Platelet Volume 9.6 fL (9.4-12.3); Monocytes Absolute Auto 0.4 X10*3/uL (0.1-1.2); Monocytes Percent Auto 4.4 % (2-11); Neutrophils Absolute Auto 7.9 x10*3/uL (2.0-8.3); Neutrophils Percent Auto 81.8 % (45-73); Platelet Count 231 X10*3/uL (160-400); Red Blood Count 4.26 X10*6/uL (4.20-5.50); Red Cell Distribution Width 12.2 % (11.0-16.0); White Blood Count 9.7 X10*3/uL (4.8-10.8)
[2023-10-25 18:13] LABS: Alanine Aminotransferase 12 U/L (0-31); Albumin Level 5.4 g/dL (3.5-5.0); Alkaline Phosphatase 64 U/L (39-117); Anion Gap 17 (12-20); Aspartate Amino Transferase 19 U/L (5-31); Bilirubin Total 0.9 mg/dL (0.0-1.0); Blood Urea Nitrogen 17 mg/dL (9-16); Calcium 10.5 mg/dL (8.4-10.2); Carbon Dioxide 22 mmol/L (22-29); Chloride 106 mmol/L (96-108); Creatinine Clr Calc Pharmacy 102.6; Estimated Glomerular Filt Rate > 60; Ethanol < 10 mg/dL; Glucose Random 116 mg/dL (60-115); Magnesium 2.2 mg/dL (1.6-2.6); Potassium 3.9 mmol/L (3.3-5.1); Sodium 141 mmol/L (135-145); Total Protein 8.7 g/dL (6.5-8.0)
[2023-10-25 18:44] LABS: Amphetamine Screen Urine Not Detected (Not Detect); Barbiturates, Urine Not Detected (Not Detect); Benzodiazepines Screen Urine Not Detected (Not Detect); Buprenorphine Scr Not Detected (Not Detect); Cannabinoid Screen Urine POSITIVE (Not Detect); Cocaine Screen Urine Not Detected (Not Detect); Fentanyl, urine Not Detected (Not Detect); Methadone Screen, Urine Not Detected (Not Detect); Opiate Screen Urine Not Detected (Not Detect); Oxycodone Screen Urine Not Detected (Not Detect); Phencyclidine Screen Urine Not Detected (Not Detect)
[2023-10-25 21:47] LABS: Appearance Urine Clear; Glucose Urine UA Negative (Negative); Leukocyte Esterase Urine Negative (Negative); Nitrite Urine Negative (Negative); PH 5.5 (5.0-9.0); Specific Gravity - Urine >= 1.030 (1.005-1.025); UMIC TRIGGER UACC YES; Urine Blood Negative (Negative); Urine Ketones 80 mg/dL (Negative); Urine Protein 30 (1+) mg/dL (Neg-Trace)
--- NOTE | 2023-10-25 21:50 | ED.GENADULT ---
HPI - General Adult General Chief complaint: Nausea/Vomiting/Diarrhea Stated complaint: vomiting for 4 days Time Seen by Provider: 10/25/23 21:15 Source: patient Mode of arrival: ambulatory Limitations: no limitations History of Present Illness ED Provider: Manfred VALENZUELA HPI narrative: 23 yold female of major depressive disorder presents to the ED for epigastric abdominal pain, diarrhea, nausea and vomitting since drinking multipe rounds of alcohol on . Patient denies any chest pain, shortness of breath, fever, or chills Related Data Previous Rx's ?Medication ?Instructions ?Recorded mirtazapine 15 mg tablet 15 mg PO BEDTIME #30 tabs 12/30/21 quetiapine 25 mg tablet 25 mg PO BEDTIME #30 tabs 12/30/21 ondansetron 4 mg disintegrating 4 mg PO Q8H PRN nausea and 11/21/22 tablet vomiting #20 tabs promethazine 12.5 mg rectal 12.5 mg NC Q6H PRN nausea and 11/26/22 suppository vomiting #12 ea ibuprofen 400 mg tablet 400 mg PO TID PRN fever or pain 01/04/23 #30 tabs famotidine 20 mg tablet (Pepcid) 20 mg PO BID 10 days #20 tabs 10/26/23 Allergies Allergy/AdvReac Type Severity Reaction Status Date / Time Penicillins [PENICILLINS] Allergy Intermediate ITCHY RED Verified 10/25/23 17:14 HIVES. Review of Systems Review of Systems: Abdominal pain, diarrhea, Yes all other systems are reviewed and are negative PMFSH Past Medical History Medical History History of kidney stones Cannabinoid hyperemesis syndrome PCOS (polycystic ovarian syndrome) Surgical History History of eye surgery History of wisdom tooth extraction History of ankle surgery Social History Social History Household Members: Other Household Members Other:: Father Alcohol intake: current Alcohol intake frequency: does not drink Patient Tobacco Use Status: Never used Tobacco Tobacco use type: Smokeless Tobacco Smoked in Last 30 Days: No Second Hand Smoke Exposure: No Use of substances other than those prescribed or required for medical reasons: No Substance Use Type: Marijuana Advance Directives: No Advance Directives Information Provided: No Do you have a plan to hurt others: No Plan Physical Exam ED Vital Signs: Vital Signs - 24 hr 10/25/23 17:10 10/25/23 23:40 Temperature 98.9 F 98.5 F Pulse Rate 97 88 Respiratory Rate 20 16 Blood Pressure 121/79 107/67 Pulse Oximetry 100 98 Oxygen Delivery Method Room Air Room Air BMI result Body Mass Index 23.3 Const General: cooperative, healthy appearing, comfortable, no acute distress, well developed, alert, awake and Physically active Orientation/consciousness: patient oriented x3 [facility] Head: Yes normal to inspection, Yes No palpable skull fracture present, Yes normocephalic, Yes atraumatic and No abrasion Eyes General: appearance normal, both eyes and all related structures Neck Neck: Yes normal visual inspection, Yes full ROM, Yes no lymphadenopathy, Yes no meningeal signs, Yes trachea midline, Yes supple, No anterior neck swelling and No tender Chest Chest palpation & inspection: normal inspection of the chest and normal palpation of entire chest wall Resp Effort & Inspection: normal respiratory effort and able to speak in complete sentences Auscultation: clear to auscultation bilaterally Cardio Jugular venous distension: no JVD Heart sounds: S1 normal heart sound present and S2 normal heart sound present GI Inspection: Yes normal to inspection Palpation (GI): Soft to palpation, not firm, Tenderness to palpation present (GI) in the epigastrum (burning), no guarding and not rigid General: No CVA tenderness and Yes no CVA tenderness Back/Spine/Pelvis Back: no CVA tenderness, No CVA tenderness and No back tenderness Skin General skin exam: no rashes or lesions noted, elasticity normal and turgor normal Neuro General: patient oriented x3, gait normal, tone normal, moves all extremities, no meningeal signs, no focal motor deficits, CN's II-XI intact bilaterally and normal sensation to monofilament Extrem General: Yes normal to inspection, Yes full ROM and No capillary refill normal Psych Appearance: grossly normal, well kempt and not disheveled Medications Administered Discontinued Medications Generic Name Dose Route Start Last Admin Trade Name Freq PRN Reason Stop Dose Admin Al Hydroxide/Mg Hydroxide 30 ml 10/25/23 23:48 10/25/23 23:57 Magnesium Hydrox/Alum Hydrox 30 Ml Oral.Susp PO 07/08/24 23:49 30 ml ONCE ONE Administration Belladonna Alkaloids/Phenobarbital 10 ml 10/25/23 23:48 10/25/23 23:57 Phenobarb/Hyoscy/Atropine/Scop 10 Ml Elixir PO 10/25/23 23:49 10 ml ONCE ONE Administration Diphenhydramine HCl 50 mg 10/25/23 23:36 10/25/23 23:57 Diphenhydramine Hcl 50 Mg/Ml Vial IVPUSH 10/25/23 23:37 50 mg ONCE ONE Administration Famotidine 20 mg 10/25/23 21:47 10/25/23 22:08 Famotidine/Pf 20 Mg/2 Ml Vial IVPUSH 10/25/23 21:48 20 mg ONCE ONE Administration Sodium Chloride 1,000 mls @ 999 mls/hr 10/25/23 21:47 10/25/23 23:56 Ns IV 10/25/23 22:47 Infused .Q1H1M STA Infusion Sodium Chloride 1,000 mls @ 999 mls/hr 10/26/23 00:06 10/26/23 01:09 Ns IV 10/26/23 01:06 Infused .Q1H1M STA Infusion Iohexol 85 ml 10/26/23 00:31 10/26/23 00:31 Iohexol 350 Mg/Ml 100 Ml Infus..Btl IV 10/26/23 00:32 85 ml ONCE ONE Administration Lidocaine HCl 15 ml 10/25/23 23:48 10/25/23 23:57 Lidocaine Hcl Viscous 2 % 15 Ml Solution MUCOUS MEM 10/25/23 23:49 15 ml ONCE ONE Administration Ondansetron HCl 4 mg 10/25/23 21:47 10/25/23 22:08 Ondansetron Hcl 4 Mg/2 Ml Vial IVPUSH 10/25/23 21:48 4 mg ONCE ONE Administration Medical Decision Making Medical Decision Making MDM Narrative: 23-year-old female presents to ED for abdominal pain since drinking multiple rounds of alcohol on October 20 of diarrhea. Pain is in epigastric area. Patient states no fever or chills. Labs ordered. Pepcid Zofran fluids were. 2:21am: And GI cocktail. Abdominal CT scan negative for any acute etiologies. Shows 6 mm nonobstructive kidney pole stone. Patient explained worrisome signs and informed to return to the ED immeidatley. Symptoms due to alcoholic induced GERD. Not suspecting colitis, cholecystitis, pancreatitis, friction, or appendicitis. Differential Diagnosis Differential Diagnoses: The differential diagnosis associated with the presentation includes (Alcoholic gastritis, pancreatitis cholecystitis) Admission/Observation Consideration of admission/observation: Escalation of care including admission/observation considered Lab Data MDM Lab Attestation statement: I reviewed the patient's lab results. 10/25/23 17:32 10/25/23 17:32 Labs: Lab Results 10/25/23 10/25/23 Range/Units 17:32 18:22 WBC 9.7 (4.8-10.8) X10*3/uL RBC 4.26 (4.20-5.50) X10*6/uL Hgb 14.0 (12.0-16.0) g/dl Hct 39.7 (37.0-47.0) % MCV 93.2 (80.0-98.0) fL MCH 32.9 (27.0-33.0) pg MCHC 35.3 H (31.0-35.0) g/dl RDW 12.2 (11.0-16.0) % Plt Count 231 (160-400) X10*3/uL MPV 9.6 (9.4-12.3) fL Immature Gran % (Auto) 0.3 (0.0-0.4) % Neut % (Auto) 81.8 H (45-73) % Lymph % (Auto) 13.3 L (20-40) % [place] % (Auto) 4.4 (2-11) % Eos % (Auto) 0.0 (0-4) % Baso % (Auto) 0.2 (0-2) % Lymph # (Auto) 1.3 (1.2-4.9) X10*3/uL [place] # (Auto) 0.4 (0.1-1.2) X10*3/uL Eos # (Auto) 0.0 (0.0-0.4) X10*3/uL Baso # (Auto) 0.0 (0.0-0.2) X10*3/uL Abs Immat Gran (auto) 0.03 (0.00-0.03) X10*3/uL Absolute Neuts (auto) 7.9 (2.0-8.3) x10*3/uL Absolute Nucleated RBC 0.000 (0.0-0.012) X10*3/uL Nucleated RBC % (auto) 0.0 (0.0-0.2) /100WBC Sodium 141 (135-145) mmol/L Potassium 3.9 (3.3-5.1) mmol/L Chloride 106 (96-108) mmol/L Carbon Dioxide 22 (22-29) mmol/L Anion Gap 17 (12-20) BUN 17 H (9-16) mg/dL Creatinine 0.78 (0.5-1.4) mg/dL Estim Creat Clear Calc 102.6 Estimated GFR > 60 Random Glucose 116 H (60-115) mg/dL Calcium 10.5 H (8.4-10.2) mg/dL Magnesium 2.2 (1.6-2.6) mg/dL Total Bilirubin 0.9 (0.0-1.0) mg/dL AST 19 (5-31) U/L ALT 12 (0-31) U/L Alkaline Phosphatase 64 (39-117) U/L Total Protein 8.7 H (6.5-8.0) g/dL Albumin 5.4 H (3.5-5.0) g/dL Lipase 21 (8-78) U/L Beta HCG, Quant < 2 mIU/mL Urine Color Yellow Urine Appearance Clear Urine pH 5.5 (5.0-9.0) Ur Specific [place] >= 1.030 H (1.005-1.025) Urine Protein 30 (1+) H (Neg-Trace) mg/dL Urine Glucose (UA) Negative (Negative) mg/dL Urine Ketones 80 (Negative) mg/dL Urine Blood Negative (Negative) Urine Nitrite Negative (Negative) Ur Leukocyte Esterase Negative (Negative) Urine RBC 0-2 (0-2) /HPF Urine WBC 0-5 (0-5) /HPF Ur Squamous Epith Cells 0-2 (0-2) /HPF Calcium Oxalate Crystal Present Urine Bacteria None Seen (None Seen) Hyaline Casts 0-2 (0-2) /LPF Urine Opiates Screen Not Detected (Not Detect) Ur Buprenorphine Scrn Not Detected (Not Detect) ng/mL Ur Oxycodone Screen Not Detected (Not Detect) ng/mL Urine Methadone Screen Not Detected (Not Detect) ng/mL Urine Fentanyl Screen Not Detected (Not Detect) Ur Barbiturates Screen Not Detected (Not Detect) Ur Phencyclidine Scrn Not Detected (Not Detect) Ur Amphetamines Screen Not Detected (Not Detect) U Benzodiazepines Scrn Not Detected (Not Detect) Urine Cocaine Screen Not Detected (Not Detect) U Marijuana (THC) Screen POSITIVE H (Not Detect) Ethyl Alcohol < 10 mg/dL Independent Interpretation I performed an independent interpretation of an: CT Scan Radiology Impression Discussion of test interpretation with radiology: I have reviewed the radiologist's reading. Independent Historian Clinical information obtained from an independent historian. History obtained from or confirmed by: Other (Patient) External Record Review External record reviewed: Other (Prior visits) Prescription Management I considered prescription management with: Other (Antiacids) Discharge Plan Discharge Clinical Impression: Gastroesophageal reflux disease Patient Disposition: Home, Self-Care Instructions: Gastroesophageal Reflux Disease (ED) Additional Instructions: Return to the ED immediately for any severe abdominal pain, fever, chills, chest pain, shortness of breath, abdominal pain, back pain, dysuria, hematuria, or any other concerning symptoms. Recommend follow up with the primary care provider. Your labs were normal. CT scan did not show any acute abdominal etiology CT/CT abdomen pelvis w IV con IMPRESSION: 1. No acute findings in the abdomen or pelvis. 2. 6 mm nonobstructing calculus midpole left kidney. Fleischner guidelines were followed. Prescriptions: New famotidine [Pepcid] 20 mg tablet 20 mg PO BID 10 Days Qty: 20 0RF No Action mirtazapine 15 mg tablet 15 mg PO BEDTIME Qty: 30 0RF quetiapine 25 mg tablet 25 mg PO BEDTIME Qty: 30 0RF ibuprofen 400 mg tablet 400 mg PO TID PRN (Reason: fever or pain) Qty: 30 0RF ondansetron 4 mg tablet,disintegrating 4 mg PO Q8H PRN (Reason: nausea and vomiting) Qty: 20 0RF promethazine 12.5 mg suppository 12.5 mg NC Q6H PRN (Reason: nausea and vomiting) Qty: 12 0RF Rx Instructions: Do not take more than 4 doses in 1 day Stand Alone Forms: Work/School Release Print Language: [place]
[2023-10-25 21:51] LABS: Color Urine Yellow
[2023-10-25 22:01] LABS: Bacteria Urine None Seen (None Seen); Calcium Oxalate Crystals Urine Present; Hyaline Casts Urine 0-2 /LPF (0-2); RBC Urine 0-2 /HPF (0-2); Squamous Epithelial Cell Urine 0-2 /HPF (0-2); WBC Urine 0-5 /HPF (0-5)
[2023-10-25] MEDS: 0.9 % Sodium Chloride 1,000 ML 999 ML IV (22:04)
[2023-10-25] MEDS: ondansetron HCL 4 MG/2 ML VIAL IVPUSH (22:08)
[2023-10-25] MEDS: Famotidine/PF 20 MG/2 ML VIAL IVPUSH (22:08)
[2023-10-25 22:10] LABS: HCG Quantitative < 2 mIU/mL
[2023-10-25 22:15] LABS: Lipase 21 U/L (8-78)
[2023-10-25 23:40] VITALS: BP 107/67; PULSE 88; RESP 16; TEMP 36.9; O2SAT 98
[2023-10-25] MEDS: Magnesium Hydrox/Alum Hydrox 30 ML ORAL.SUSP PO (23:57)
[2023-10-25] MEDS: diphenhydrAMINE HCL 50 MG/ML VIAL IVPUSH (23:57)
[2023-10-25] MEDS: Lidocaine HCl Viscous 2 % 15 ML SOLUTION MUCOUS MEM (23:57)
[2023-10-25] MEDS: PHENobarb/Hyoscy/Atropine/Scop 10 ML ELIXIR PO (23:57)
[2023-10-26] MEDS: 0.9 % Sodium Chloride 1,000 ML 999 ML IV (00:08)
[2023-10-26] MEDS: iohexoL 350 MG/ML 100 ML INFUS..BTL 85 ML IV (00:31)
[2023-10-26 02:46] VITALS: BP 113/57; PULSE 54; RESP 17; TEMP 37.1; O2SAT 97
[2023-10-26 02:48] VITALS: BP 113/57; PULSE 54; RESP 17; TEMP 37.1; O2SAT 97
== END 2023-10-26 02:53 | disposition home or self-care (01) ==
PROVIDERS: Physician Assistant; Emergency Provider Internal Medicine
DX: K21.9 Gastro-esophageal reflux disease without esophagitis (principal); R11.2 Nausea with vomiting, unspecified; R10.13 Epigastric pain; I49.8 Other specified cardiac arrhythmias; R10.2 Pelvic and perineal pain; Z79.899 Other long term (current) drug therapy
CPT/HCPCS: 36415; 74177; 80053; 80307; 81001; 83690; 83735; 84702; 85025; 93005; 96361; 96374; 96375; 99284; 99285; J1200; J2405; Q9967

== ENCOUNTER → 2023-10-25 17:20 | Outpatient (BNV) | payer OTHER, SELFPAY | PROVIDERS: Emergency Provider Internal Medicine; Visit Provider Internal Medicine Cardiovascular Disease | DX: I49.8 Other specified cardiac arrhythmias (principal); R94.31 Abnormal electrocardiogram [ECG] [EKG]; R11.0 Nausea | CPT/HCPCS: 93010 ==

== ENCOUNTER 2023-12-15 12:07 | Outpatient (AMB) | payer OTHER, SELFPAY ==
--- NOTE | 2023-12-15 12:12 | MHC.OFFWIV ---
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 Intake Note: Sanjuana is a 23 year old female who presents to the office today for c/o a red inflamed bump on her right arm x2 months. Pt states it recently popped a week ago and white discharge came out of it. Pt states she has a hx of MRSA when she was a child. Patient Tobacco Use Status: Never used Tobacco Allergies Penicillins [PENICILLINS] Allergy (Intermediate, Verified 12/15/23 12:17) ITCHY RED HIVES. 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 HPI Details This note is constructed using voice recognition software. While every effort has been made to ensure accuracy, bridge carpenter errors may have been included. The patient is a 23 year old female who presents to the clinic today with concern for infection to right upper arm. She notes that she developed a bug bite approximately 2 months ago, which was followed by a red lump. About a week ago the area opened and drained thick white discharge, and since then redness has remained to the area with warmth. She was advised by a co-worker that she should be evaluated for this. She notes that she had MRSA as a child. She denies fever, chills, pain throughout the arm, but does note that the area itself is tender. She continues to do warm compresses to the area. [facility] Medical History History of kidney stones Cannabinoid hyperemesis syndrome PCOS (polycystic ovarian syndrome) Surgical History History of eye surgery History of wisdom tooth extraction History of ankle surgery Social History Household Members: Other Household Members Other:: Father Alcohol intake: current Alcohol intake frequency: does not drink Patient Tobacco Use Status: Never used Tobacco Tobacco use type: Smokeless Tobacco Second Hand Smoke Exposure: No Substance Use Type: Marijuana Review of Systems Const All systems reviewed & are unremarkable except as noted in HPI and below Physical Exam Vital Signs: Last Vital Signs Temp 98.3 F 12/15/23 12:15 Pulse 85 12/15/23 12:15 BP 118/74 12/15/23 12:15 Pulse Ox 98 12/15/23 12:15 Oxygen Delivery Method Room Air 12/15/23 12:15 BMI result Body Mass Index 22.7 Const General: cooperative, healthy appearing, comfortable, no acute distress and alert Orientation/consciousness: patient oriented x3 Limitations: no limitations Skin Other: 3 x 3 cm area right upper posterior arm area of induration with slight warmth. No obvious discharge present. General skin exam: elasticity normal and turgor normal Neuro General: patient oriented x3 Extrem General: Yes normal to inspection, Yes full ROM, Yes capillary refill normal and Yes normal exam except as noted Psych Appearance: grossly normal Mental Status: mental status grossly normal Speech and movement: Normal speech and movement present Affect: normal affect Assessment & Plan Assessment & Plan (1) Cellulitis: Code(s): L03.90 - Cellulitis, unspecified Qualifiers: Site of cellulitis: extremity Site of cellulitis of extremity: upper extremity Laterality: right Qualified Code(s): L03.113 - Cellulitis of right upper limb Plan: Treatment initiated with Bactrim for MRSA coverage infection. Advised patient to monitor for any worsening symptoms including erythematous streaking, fever as these would indicate worsening infection. Advised emergency room should she develop these as these would likely require IV antibiotics. She may also return to clinic for ongoing symptoms that do not improve with antibiotics. Advised NSAIDs for pain management. Patient agreed with plan of care. Plan See above for full details and plan. Medications: New sulfamethoxazole-trimethoprim 800-160 mg (Bactrim DS) 1 tab PO BID 5 days 10 tabs 0RF Discontinued mirtazapine Discontinued Reason: Patient no longer taking 15 mg PO BEDTIME 30 tabs 0RF quetiapine Discontinued Reason: Patient no longer taking 25 mg PO BEDTIME 30 tabs 0RF promethazine Do not take more than 4 doses in 1 day Discontinued Reason: Patient no longer taking 12.5 mg DE Q6H PRN 12 ea 0RF nausea and vomiting famotidine (Pepcid) Discontinued Reason: Patient no longer taking 20 mg PO BID 10 days 20 tabs 0RF Coding Level of Care Code Est Pt Level 3 (88098) Diagnoses Cellulitis of right upper extremity L03.113 Site of cellulitis: extremity Site of cellulitis of extremity: upper extremity Laterality: right
[2023-12-15 12:15] VITALS: BP 118/74; PULSE 85; TEMP 36.8; O2SAT 98; BMI 22.7
== END 2023-12-15 13:07 | disposition home or self-care (01) ==
PROVIDERS: Visit Provider Registered Nurse
DX: L03.113 Cellulitis of right upper limb (principal)
CPT/HCPCS: 99213

== ENCOUNTER 2024-04-25 14:51 | Emergency (ER) | payer OTHER, SELFPAY ==
--- NOTE | ~2024-04-25 | CT_ITS ---
CLINICAL HISTORY: LUQ pain, N V CT abdomen and pelvis with contrast Comparison: 10/26/2023 Findings: Motion artifact somewhat limits assessment. Lung bases are clear. No acute bony abnormalities. Liver and spleen within normal limits. Pancreas and adrenal glands unremarkable. Gallbladder partially contracted, grossly unremarkable. Small nonobstructing left renal stone. No bilateral ureteral stone or hydronephrosis. Abdominal aorta is normal in caliber. No free fluid or adenopathy in the pelvis. No acute diverticulitis. Appendix unremarkable. Uterus normal size with IUD. No adnexal abnormality. Impression: No acute process This document has been electronically signed by: Driss Marin MD on 04/25/2024 22:13:01
[2024-04-25 14:53] VITALS: BP 138/76; PULSE 91; RESP 16; TEMP 35.9; O2SAT 96; BMI 24.3
--- NOTE | 2024-04-25 17:35 | ECG_ITS ---
Test Reason : LUQ PAIN Blood Pressure : */* mmHG Vent. Rate : 72 BPM Atrial Rate : 72 BPM P-R Int : 126 ms QRS Dur : 74 ms QT Int : 360 ms P-R-T Axes : 73 87 55 degrees QTcB Int : 394 ms Normal sinus rhythm Normal ECG When compared with ECG of 25-Oct-2023 17:20, No significant change was found Referred By: Manfred Caraballo Electronically Signed By: RALPH TORRES
[2024-04-25 18:26] LABS: MANUAL DIFF FLAG NO
[2024-04-25 18:32] LABS: Basophils Percent Auto 0.4 % (0-2); Eosinophils Percent Auto 0.1 % (0-4); Hematocrit 39.3 % (37.0-47.0); Imm Gran Abs Auto 0.03 X10*3/uL (0.00-0.03); Imm Gran Pct Auto 0.3 % (0.0-0.4); Lymphocytes Percent Auto 9.6 % (20-40); Mean Corpuscular HGB Conc 35.6 g/dl (31.0-35.0); Mean Corpuscular Hemoglobin 32.2 pg (27.0-33.0); Mean Corpuscular Volume 90.3 fL (80.0-98.0); Mean Platelet Volume 9.4 fL (9.4-12.3); Monocytes Absolute Auto 0.3 X10*3/uL (0.1-1.2); Monocytes Percent Auto 3.2 % (2-11); Neutrophils Absolute Auto 9.2 x10*3/uL (2.0-8.3); Neutrophils Percent Auto 86.4 % (45-73); Platelet Count 240 X10*3/uL (160-400); Red Blood Count 4.35 X10*6/uL (4.20-5.50); Red Cell Distribution Width 11.9 % (11.0-16.0); White Blood Count 10.7 X10*3/uL (4.8-10.8)
[2024-04-25 18:39] LABS: INTERNATIONAL NORM RATIO 1.1 (0.9-1.1); Prothrombin Time 12.5 SEC (10.9-12.4)
[2024-04-25 18:42] LABS: Partial Thromboplastin Time 24.8 SEC (26.0-36.8)
[2024-04-25 18:53] LABS: Troponin-I High Sensitivity < 2.7 ng/L (<3.5-17.0)
[2024-04-25 20:11] LABS: Alanine Aminotransferase 7 U/L (0-31); Albumin Level 5.1 g/dL (3.5-5.0); Alkaline Phosphatase 59 U/L (39-117); Anion Gap 22 (12-20); Aspartate Amino Transferase 22 U/L (5-31); Blood Urea Nitrogen 13 mg/dL (9-16); Calcium 9.5 mg/dL (8.4-10.2); Carbon Dioxide 17 mmol/L (22-29); Chloride 103 mmol/L (96-108); Creatinine Clr Calc Pharmacy 112.6; Estimated Glomerular Filt Rate > 60; Glucose Random 88 mg/dL (60-115); Lipase 21 U/L (8-78); Potassium 3.6 mmol/L (3.3-5.1); Sodium 138 mmol/L (135-145); Total Protein 8.2 g/dL (6.5-8.0)
[2024-04-25 20:12] VITALS: BP 134/78; PULSE 90; RESP 18; TEMP 36.8; O2SAT 97
--- NOTE | 2024-04-25 20:14 | MHC.EDTECH ---
Patient brought in from the waiting room,introduced self to pt,vitals taken,pt ambulated with a steady gait to the bathroom,urine sample obtained and sent to lab
[2024-04-25 20:28] LABS: Appearance Urine Clear; Color Urine Yellow; Glucose Urine UA Negative (Negative); Leukocyte Esterase Urine Negative (Negative); Nitrite Urine Negative (Negative); PH 5.5 (5.0-9.0); Specific Gravity - Urine >= 1.030 (1.005-1.025); UMIC TRIGGER UACC YES; Urine Blood Small (1+) (Negative); Urine Ketones >=160 mg/dL (Negative); Urine Protein Trace mg/dL (Neg-Trace)
[2024-04-25 20:29] LABS: UPreg QC Valid YES; Urine Pregnancy NEGATIVE (NEGATIVE)
[2024-04-25 20:49] LABS: Bacteria Urine None Seen (None Seen); Hyaline Casts Urine 0-2 /LPF (0-2); RBC Urine 0-2 /HPF (0-2); WBC Urine 0-5 /HPF (0-5)
[2024-04-25] MEDS: iohexoL 350 MG/ML 100 ML INFUS..BTL 85 ML IV (21:28)
[2024-04-25] MEDS: 0.9 % Sodium Chloride 1,000 ML 999 ML IV (21:29)
[2024-04-25] MEDS: Ketorolac Tromethamine 15 MG/ML VIAL IVPUSH (21:29)
[2024-04-25] MEDS: ondansetron HCL 4 MG/2 ML VIAL IVPUSH (21:29)
--- NOTE | 2024-04-25 21:46 | ED_ITS ---
HPI - Abdominal Pain General Chief Complaint: Abdominal Pain Stated Complaint: Abd pain, nausea Time Seen by Provider: 04/25/24 21:03 Source: patient Mode of arrival: ambulatory Limitations: no limitations History of Present Illness ED Provider: Na Hercules NP HPI narrative: Patient is a 24-year-old female who presents to the emergency department for evaluation. She states she has been experiencing epigastric and left upper quadrant abdominal pain and nausea and vomiting for the past 1 week. She is not able to tolerate any oral intake by her account. She denies having constipation or diarrhea but states that her stools have been darker brown denies them to be black. Denies any bloody stool. Admits to a history of cannabinoid hyperemesis syndrome, she has sublingual Zofran at home but states that this never helps her. Typically her symptoms with cannabinoid hyperemesis last 4-5 days this has lasted longer. She does admit that she has had other individuals around her ill with respiratory and GI symptoms but none of which have lasted as long as hers. Denies fevers, chills, chest pain, hematemesis, dysuria, urinary frequency, urinary urgency, urinary hesitancy, hematuria. denies pelvic pain or abnormal vaginal discharge, states she has abnormal menstrual cycle due to PCOS does not recall LMP but denies concern for . Denies concern for sexually transmitted infection. Related Data Home Medications ?Medication ?Instructions ?Recorded ?Confirmed hydroxyzine HCl 25 mg tablet 25 mg PO BID 12/15/23 lamotrigine 25 mg tablet 50 mg PO DAILY 12/15/23 olanzapine 10 mg tablet 10 mg PO BEDTIME 12/15/23 propranolol 10 mg tablet 20 mg PO BID 12/15/23 Previous Rx's ?Medication ?Instructions ?Recorded ondansetron 4 mg disintegrating 4 mg PO Q8H PRN nausea and 11/21/22 tablet vomiting #20 tabs ibuprofen 400 mg tablet 400 mg PO TID PRN fever or pain 01/04/23 #30 tabs sulfamethoxazole 800 1 tab PO BID 5 days #10 tabs 12/15/23 mg-trimethoprim 160 mg tablet (Bactrim DS) ondansetron 4 mg disintegrating 4 mg PO Q8H PRN nausea and 04/26/24 tablet vomiting #10 tabs Allergies Allergy/AdvReac Type Severity Reaction Status Date / Time Penicillins [PENICILLINS] Allergy Intermediate ITCHY RED Verified 04/25/24 14:54 HIVES. Review of Systems Review of Systems Yes all other systems are reviewed and are negative [facility] Past Medical History Attestation statement: The following information was validated with the patient. Source: old records reviewed Medical History History of kidney stones Cannabinoid hyperemesis syndrome PCOS (polycystic ovarian syndrome) Surgical History History of eye surgery History of wisdom tooth extraction History of ankle surgery Social History Social History Household Members: Other Household Members Other:: Father Alcohol intake: current Alcohol intake frequency: does not drink Patient Tobacco Use Status: Never used Tobacco Tobacco use type: Smokeless Tobacco Second Hand Smoke Exposure: No Substance Use Type: Marijuana Physical Exam ED Vital Signs: Vital Signs - 24 hr 04/25/24 14:53 04/25/24 20:12 04/25/24 23:36 Temperature 96.7 F L 98.3 F 98.1 F Pulse Rate 91 90 85 Respiratory Rate 16 18 18 Blood Pressure 138/76 134/78 136/76 Pulse Oximetry 96 97 98 Oxygen Delivery Method Room Air Room Air Room Air 04/26/24 01:07 Temperature 98.1 F Pulse Rate 85 Respiratory Rate 18 Blood Pressure 136/76 Pulse Oximetry 98 Oxygen Delivery Method Room Air BMI result Body Mass Index 24.3 Appearance: Alert.?Oriented to person, place and time. No acute distress.?Normal affect.?? Neck: Normal inspection.? Neck supple.?? CVS: Heart sounds normal. Normal heart rate and rhythm.? Pulses normal.?? Respiratory: No respiratory distress.? Lung sounds clear to auscultation bilaterally?? Abdomen: Soft with epigastric and left upper quadrant tenderness upon palpation No rebound tenderness at McBurney's point. Negative psoas sign. Negative Rovsing sign. Negative Pino sign. No CVAT. Normoactive bowel sounds. No pulsatile mass.?? Skin: Skin warm and dry.? Normal skin color.? Extremities: No lower extremity edema.? Neuro: Moves all extremities spontaneously. Sensation intact bilaterally. Ambulates with normal steady gait. Medical Decision Making Medical Decision Making [facility] Narrative: Patient is a 24-year-old female with past medical history of cannabis induced hyperemesis syndrome, PCOS, nephrolithiasis who presents emergency department for evaluation of left upper quadrant abdominal pain over the past week with nausea and vomiting as per HPI. That home not tolerating oral intake. On evaluation she does have notable tenderness of the epigastrium left upper quadrant, no guarding or rebound tenderness. Clinical picture seems to favor cannabinoid hyperemesis syndrome versus gastroenteritis versus acute hepatobiliary etiology/acute pancreatitis. No associated chest pain shortness of breath or URI symptoms to suggest pneumonia, no clinical evidence of DVT or personal history of VTE/malignancy to suggest pulmonary embolism. No high-risk past medical history to suggest myocardial infarction and is without chest pain, less likely AAA, aortic dissection. No rebound tenderness at McBurney's point, rigidity, guarding to suggest acute appendicitis. No tenderness of the left lower quadrant nor associated nausea, vomiting, diarrhea, constipation, hematochezia or melena to suggest diverticulitis or GI bleed. No appreciable hernia to suggest strangulation/incarceration. Lower suspicion for bowel obstruction. No distention or rigidity to suggest GI perforation. No associated genitourinary symptoms to suggest UTI/pyelonephritis, renal colic, hydronephrosis. hCG is negative, unlikely ectopic , lower clinical suspicion for TOA/torsion given benign lower abdominal examination. Serum labs revealing no leukocytosis anemia or thrombocytopenia. No electrolyte derangement. LFTs and lipase within normal range. High sensitive troponin was below detectable limits. Urinalysis with 1+ microscopic hematuria no signs of infection, additionally concentrate likely in the setting of dehydration. She received 1 L normal saline IV fluid, Toradol 15 mg IV, Zofran 4 mg IV. Had improvement in symptoms, is able to tolerate oral liquids without vomiting. Feeling well enough to return home. CT of the abdomen and pelvis was without acute pathology again likely a viral gastroenteritis. Discussed strict return precautions. All questions answered. Differential Diagnosis Differential Diagnoses: The differential diagnosis associated with the presentation includes (See narrative above) Admission/Observation Consideration of admission/observation: Escalation of care including admission/observation considered (See narrative above ) Lab Data [facility] Lab Attestation statement: I reviewed the patient's lab results. (See narrative above) 04/25/24 18:21 04/25/24 18:21 Labs: Lab Results 04/25/24 04/25/24 Range/Units 18:21 20:21 WBC 10.7 (4.8-10.8) X10*3/uL RBC 4.35 (4.20-5.50) X10*6/uL Hgb 14.0 (12.0-16.0) g/dl Hct 39.3 (37.0-47.0) % MCV 90.3 (80.0-98.0) fL MCH 32.2 (27.0-33.0) pg MCHC 35.6 H (31.0-35.0) g/dl RDW 11.9 (11.0-16.0) % Plt Count 240 (160-400) X10*3/uL MPV 9.4 (9.4-12.3) fL Immature Gran % (Auto) 0.3 (0.0-0.4) % Neut % (Auto) 86.4 H (45-73) % Lymph % (Auto) 9.6 L (20-40) % [place] % (Auto) 3.2 (2-11) % Eos % (Auto) 0.1 (0-4) % Baso % (Auto) 0.4 (0-2) % Lymph # (Auto) 1.0 L (1.2-4.9) X10*3/uL [place] # (Auto) 0.3 (0.1-1.2) X10*3/uL Eos # (Auto) 0.0 (0.0-0.4) X10*3/uL Baso # (Auto) 0.0 (0.0-0.2) X10*3/uL Abs Immat Gran (auto) 0.03 (0.00-0.03) X10*3/uL Absolute Neuts (auto) 9.2 H (2.0-8.3) x10*3/uL Absolute Nucleated RBC 0.000 (0.0-0.012) X10*3/uL Nucleated RBC % (auto) 0.0 (0.0-0.2) /100WBC PT 12.5 H (10.9-12.4) SEC INR 1.1 (0.9-1.1) APTT 24.8 L (26.0-36.8) SEC D-Dimer High Sensitivty Cancelled Sodium 138 (135-145) mmol/L Potassium 3.6 (3.3-5.1) mmol/L Chloride 103 (96-108) mmol/L Carbon Dioxide 17 L (22-29) mmol/L Anion Gap 22 H (12-20) BUN 13 (9-16) mg/dL Creatinine 0.67 (0.5-1.4) mg/dL Estim Creat Clear Calc 112.6 Estimated GFR > 60 Random Glucose 88 (60-115) mg/dL Calcium 9.5 (8.4-10.2) mg/dL Total Bilirubin 1.0 (0.0-1.0) mg/dL AST 22 (5-31) U/L ALT 7 (0-31) U/L Alkaline Phosphatase 59 (39-117) U/L Troponin I High Sens < 2.7 (<3.5-17.0) ng/L Total Protein 8.2 H (6.5-8.0) g/dL Albumin 5.1 H (3.5-5.0) g/dL Lipase 21 (8-78) U/L Urine Color Yellow Urine Appearance Clear Urine pH 5.5 (5.0-9.0) Ur Specific [place] >= 1.030 H (1.005-1.025) Urine Protein Trace (Neg-Trace) mg/dL Urine Glucose (UA) Negative (Negative) mg/dL Urine Ketones >=160 (Negative) mg/dL Urine Blood Small (1+) H (Negative) Urine Nitrite Negative (Negative) Ur Leukocyte Esterase Negative (Negative) Urine RBC 0-2 (0-2) /HPF Urine WBC 0-5 (0-5) /HPF Ur Squamous Epith Cells 3-5 (0-2) /HPF Urine Bacteria None Seen (None Seen) Hyaline Casts 0-2 (0-2) /LPF Urine Test NEGATIVE (NEGATIVE) Independent Interpretation I performed an independent interpretation of an: CT Scan (No hydronephrosis, nephrolithiasis/ureteral calculi.) Radiology Impression Discussion of test interpretation with radiology: I have reviewed the radiologist's reading. Radiologist Impression: Findings: Motion artifact somewhat limits assessment. Lung bases are clear. No acute bony abnormalities. Liver and spleen within normal limits. Pancreas and adrenal glands unremarkable. Gallbladder partially contracted, grossly unremarkable. Small nonobstructing left renal stone. No bilateral ureteral stone or hydronephrosis. Abdominal aorta is normal in caliber. No free fluid or adenopathy in the pelvis. No acute diverticulitis. Appendix unremarkable. Uterus normal size with IUD. No adnexal abnormality. Impression: No acute process External Record Review External record reviewed: Outpatient record Prescription Management I considered prescription management with: Other (Ondansetron) Chronic Conditions Patient?s care impacted by: Other (See narrative above) Medications Administered Discontinued Medications Generic Name Dose Route Start Last Admin Trade Name Freq PRN Reason Stop Dose Admin Sodium Chloride 1,000 mls @ 999 mls/hr 04/25/24 21:15 04/25/24 22:46 Ns IV 04/25/24 22:15 Infused .Q1H1M CRISTINO Infusion Iohexol 85 ml 04/25/24 21:28 04/25/24 21:28 Iohexol 350 Mg/Ml 100 Ml Infus..Btl IV 04/25/24 21:29 85 ml ONCE ONE Administration Ketorolac Tromethamine 15 mg 04/25/24 21:03 04/25/24 21:29 Ketorolac Tromethamine 15 Mg/Ml Vial IVPUSH 04/25/24 21:04 15 mg ONCE ONE Administration Ondansetron HCl 4 mg 04/25/24 21:03 04/25/24 21:29 Ondansetron Hcl 4 Mg/2 Ml Vial IVPUSH 04/25/24 21:04 4 mg ONCE ONE Administration Discharge Plan Discharge Clinical Impression: Gastroenteritis Patient Disposition: Home, Self-Care Instructions: Gastroenteritis (ED) Additional Instructions: Be sure that you are staying well hydrated drinking plenty of fluids throughout the day. Continue use of Zofran as needed. Clear liquid diet over the next 24 hours followed by a bland diet. Introduce a bland diet including crackers, bananas, rice, soup, toast, and boiled vegetables. This may progress to plain baked or boiled chicken or turkey. Avoid dairy products or foods high in fat or grease. Blood work today was very reassuring, CT of the abdomen and pelvis is without any abnormal findings. Follow-up with your primary care doctor. Return with any new or worsening symptoms or concerns. Prescriptions: New ondansetron 4 mg tablet,disintegrating 4 mg PO Q8H PRN (Reason: nausea and vomiting) Qty: 10 0RF No Action ibuprofen 400 mg tablet 400 mg PO TID PRN (Reason: fever or pain) Qty: 30 0RF ondansetron 4 mg tablet,disintegrating 4 mg PO Q8H PRN (Reason: nausea and vomiting) Qty: 20 0RF lamotrigine 25 mg tablet 50 mg PO DAILY olanzapine 10 mg tablet 10 mg PO BEDTIME hydroxyzine HCl 25 mg tablet 25 mg PO BID propranolol 10 mg tablet 20 mg PO BID sulfamethoxazole-trimethoprim [Bactrim DS] 800-160 mg tablet 1 tab PO BID 5 Days Qty: 10 0RF Referrals: Physician,Unknown J [Primary Care Provider] - Interventions: ED Discharge Assessment Last Done: 04/26/24 01:07 Discharge Date/Time: 04/26/24 01:08 Print Language: Mohawk
--- NOTE | 2024-04-25 23:26 | PC.NURSE ---
pt given azael beka and crackers for po trial.
[2024-04-25 23:36] VITALS: BP 136/76; PULSE 85; RESP 18; TEMP 36.7; O2SAT 98
--- NOTE | 2024-04-25 23:37 | MHC.EDTECH ---
Patient tolerated crackers,and sips of azael beka,vitals taken
[2024-04-26 01:07] VITALS: BP 136/76; PULSE 85; RESP 18; TEMP 36.7; O2SAT 98
== END 2024-04-26 01:08 | disposition home or self-care (01) ==
PROVIDERS: Physician Assistant; Emergency Provider Emergency Medicine
DX: K52.9 Noninfective gastroenteritis and colitis, unspecified (principal); R10.2 Pelvic and perineal pain; R11.2 Nausea with vomiting, unspecified; R10.12 Left upper quadrant pain; Z79.899 Other long term (current) drug therapy
CPT/HCPCS: 36415; 74177; 80053; 81001; 81025; 83690; 84484; 85025; 85610; 85730; 93005; 96361; 96374; 96375; 99284; 99285; J1885; J2405; Q9967

== ENCOUNTER → 2024-04-25 17:35 | Outpatient (BNV) | payer OTHER, SELFPAY | PROVIDERS: Emergency Provider Emergency Medicine; Visit Provider Internal Medicine | DX: R10.12 Left upper quadrant pain (principal); R11.0 Nausea | CPT/HCPCS: 93010 ==

== ENCOUNTER → 2024-04-25 21:09 | Outpatient (BNV) | payer OTHER, SELFPAY | PROVIDERS: Visit Provider Radiology Diagnostic Radiology | DX: R10.9 Unspecified abdominal pain (principal); R11.2 Nausea with vomiting, unspecified | CPT/HCPCS: 74177 ==

== ENCOUNTER 2025-04-05 15:10 | Outpatient (REF) | payer OTHER, SELFPAY ==
[2025-04-06 11:46] LABS: Bacterial Vaginosis PCR POSITIVE (Negative); Candida Group PCR NOT DETECTED (Not Detect); Candida glab krusei PCR NOT DETECTED (Not Detect); Trichomonas vaginalis PCR NOT DETECTED (Not Detect)
[2025-04-06 12:15] LABS: CT PCR NOT DETECTED (Not Detect.); NG PCR NOT DETECTED (Not Detect.)
[2025-04-07 13:43] LABS: C. Trachomatis RNA TMA, Throat NOT DETECTED (NOT DETECTED); N. gonorrhoeae RNA TMA, Throat NOT DETECTED (NOT DETECTED)
== END 2025-04-05 15:11 | disposition home or self-care (01) ==
LOC: HO.LAB 15:10
PROVIDERS: PCP Family Medicine; Visit Provider Physician Assistant
DX: J35.8 Other chronic diseases of tonsils and adenoids (principal); J02.9 Acute pharyngitis, unspecified; Z20.2 Contact with and (suspected) exposure to infections with a predominantly sexual mode of transmission; N89.8 Other specified noninflammatory disorders of vagina
CPT/HCPCS: 81515; 87070; 87147; 87491; 87591; 87880; 99202

== ENCOUNTER 2025-04-05 15:10 | Outpatient (AMB) | payer OTHER, SELFPAY ==
[2025-04-05 15:35] VITALS: BP 110/62; PULSE 99; TEMP 37.1; O2SAT 98; BMI 24.1
--- NOTE | 2025-04-05 15:35 | AM.OFFWIN_ITS ---
Intake Vital Signs 04/05/25 15:35 Height 5 ft 2 in Weight 132 lb BMI 24.1 BP 110/62 Blood Pressure Location Lt brachial Position Sitting Pulse 99 Pulse Source Pulse Oximeter Temp 98.7 F Temp Source Oral Pulse Oximetry (%) 98 Oxygen Delivery Method Room Air Intake Visit Reasons: EP white patches in throat Intake Note: pt presents with a sore throat including white specs on tonsils, also reports new sexual intercourse partner and unprotected and would like full STD testing Patient Tobacco Use Status: Never used Tobacco Allergies Penicillins (PENICILLINS) Allergy (Intermediate, Verified 04/05/25 15:39) ITCHY RED HIVES. Do you need a note to return to daycare/school/sports/work: Yes HPI HPI Comments History of Present Illness Details History of Present Illness - The patient is a 25 year old female pr esenting for evaluation of a sore throat. - She reports that since the weekend, fo r 5 days, her throat has been sore with painful swallowing, and she observed concerning white material in her throat. Denies history of tonsil stones. 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 - The patient reports unprotected oral a nd vaginal sex 7 days ago, which prompted her to seek STI screening. - She also reports some abnormal white v aginal discharge. Denies urinary symptoms. Review of Systems - Constitutional: Denies fever. - HEENT: Reports sore throat with painfu l swallowing and the sensation of foreign bodies in the throat. - Respiratory: Denies cough. - Musculoskeletal: Denies body aches. - Genitourinary: Reports abnormal white vaginal discharge. - General: Denies flu-like symptoms. All systems reviewed and are unremarkable except as noted in HPI Physical Exam General: Cooperative, healthy appearing, comfortable, no acute distress and well developed Orientation: Patient oriented x3 Limitations: No limitations Head: Normal to inspection Ears: Hearing grossly normal bilaterally Nose: Normal External nose present, no nasal congestion noted Face and sinus: Normal facial exam Mouth: moist mucus membranes, tonsils with grayish/white exudate R>L and slight erythema, no posterior oropharynx erythema Eyes: Appearance normal, both eyes and all related structures Neck: Normal visual inspection and Yes full ROM Respiratory: Normal respiratory effort and able to speak in complete sentences. Skin: No rashes or lesions noted Neuro: Patient oriented x3 Extremities: Normal to inspection [facility] Medical History (Updated 04/05/25 @ 16:27 by Lary Montalvo PA-C) Possible exposure to sexually transmitted infection History of kidney stones Cannabinoid hyperemesis syndrome PCOS (polycystic ovarian syndrome) Surgical History History of eye surgery History of wisdom tooth extraction History of ankle surgery Social History Household Members: Other Household Members Other:: Father Alcohol intake: current Alcohol intake frequency: does not drink Patient Tobacco Use Status: Never used Tobacco Tobacco use type: Smokeless Tobacco Second Hand Smoke Exposure: No Substance Use Type: Marijuana Review of Systems Narrative Review of Systems - Constitutional: Denies fever. - HEENT: Reports sore throat with painful swallowing and the sensation of foreign bodies in the throat. - Respiratory: Denies cough. - Musculoskeletal: Denies body aches. - Genitourinary: Reports abnormal white vaginal discharge. - General: Denies flu-like symptoms. All systems reviewed and are unremarkable except as noted in HPI Physical Exam Exam Exam: Vital Signs: Last Vital Signs Temp 98.7 F 04/05/25 15:35 Pulse 99 04/05/25 15:35 BP 110/62 04/05/25 15:35 Pulse Ox 98 04/05/25 15:35 Oxygen Delivery Method Room Air 04/05/25 15:35 BMI result Body Mass Index 24.1 Results AMB Rapid Strep AMB Rapid Strep Negative Last Edit by Jenna Rudolph CMA on 04/05/25 16:1 9 Results Reviewed Results Reviewed: Laboratory Last Values Strep Scn Rapid Clinic Negative 04/05/25 16:18 Assessment & Plan Assessment & Plan (1) Possible exposure to sexually transmitted infection: Code(s): Z20.2 - Contact with and (suspected) exposure to infections with a predominantly sexual mode of transmission Plan: Patient was informed and verbally consented to the use of an ambient scribe for clinic note documentation during this visit. - The patient requested comprehensive STI testing following an episode of unpro tected sex last . - The patient was educated about the symptoms and risks of syphilis and HIV. - Testing performed included a vaginal swab for gonorrhea and chlamydia. - Blood work for Hepatitis B, Hepatitis C, HIV, and syphilis was ordered, and the patient was instructed to go to the lab for the draw. - The patient will be contacted with the results and prescriptions will be sent if any tests are positive and treatment TBD based on results. - (2) Tonsillar exudate: Code(s): J35.8 - Other chronic diseases of tonsils and adenoids Plan: - The patient presents with a sore throat and grayish tonsillar exudates that began over the weekend. - The differential diagnosis includes streptococcal pharyngitis and oropharyngeal gonorrhea, given her recent history of unprotected oral sex last week. - A rapid strep test performed in the clinic was negative. - A throat culture was sent to definitively rule out strep, and a separate throat swab for gonorrhea and chlamydia was also collected. - Treatment TBD based on test results. (3) Vaginal discharge: Code(s): N89.8 - Other specified noninflammatory disorders of vagina Plan: Vaginal Discharge - The patient reports abnormal white vaginal discharge. - A bacterial vaginosis panel was collected via vaginal swab to test for Trichomonas, yeast, and bacterial vaginosis. - Treatment TBD based on test results. Plan Orders: Orders Hepatitis B Surface Antigen 04/05/25 Z20.2 - Contact with and (suspected) exposure to infections with a predominantly sexual mode of transmission CT NG by PCR Vag/Cerv 04/05/25 Z20.2 - Contact with and (suspected) exposure to infections with a predominantly sexual mode of transmission CT NG RNA TMA, Throat 04/05/25 R07.0 - Pain in throat Throat Culture 04/05/25 J02.9 - Acute pharyngitis, unspecified Syphilis Screen 04/05/25 Z20.2 - Contact with and (suspected) exposure to infections with a predominantly sexual mode of transmission Hepatitis C Antibody 04/05/25 Z20.2 - Contact with and (suspected) exposure to infections with a predominantly sexual mode of transmission HIV Ab/Ag 04/05/25 Z20.2 - Contact with and (suspected) exposure to infections with a predominantly sexual mode of transmission Bacterial Vaginosis Panel 04/05/25 Z20.2 - Contact with and (suspected) exposure to infections with a predominantly sexual mode of transmission AMB Rapid Strep Screen 04/05/25 Z13.9 - Encounter for screening, unspecified Coding Level of Care Code New Pt Level 4 (39660) Diagnoses Possible exposure to sexually transmitted infection Z20.2 Tonsillar exudate J35.8 Vaginal discharge N89.8
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
--- OUTSIDE RECORDS SUMMARY | 2025-04-05 19:12 | XMS_ITS ---
Author Name [facility] Organization Unknown Care Team Organization Name Specialty Phone Email Start Date End Da te [facility] BRENDA PYLE [email or web address] 01/20/2023 4 [facility] RIYA MATTHEWS Primary Care 06/24/2022 4 [facility] Sanket Yoon Primary Care 02/24/202211/17 4
== END 2025-04-05 16:37 | disposition home or self-care (01) ==
PROVIDERS: PCP Family Medicine; Visit Provider Physician Assistant
DX: Z13.9 Encounter for screening, unspecified (principal)

== ENCOUNTER 2025-04-06 11:25 | Outpatient (REF) | payer OTHER, SELFPAY ==
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
[2025-04-09 03:53] LABS: Syphilis Screen Nonreactive (Nonreactive)
[2025-04-09 04:43] LABS: HBsAGNum1 0.29 S/CO (0.00-0.99); HIV Num 1 0.07 S/CO (0.00-0.99); Hepatitis B Surface Antigen Negative (Negative); ~HepC Num1 0.09 S/CO (0.00-0.79); ~Hepatitis C Antibody Nonreactive (Nonreactive)
== END 2025-04-06 11:26 | disposition home or self-care (01) ==
LOC: HO.HMGCLDS 11:25
PROVIDERS: PCP Family Medicine; Visit Provider Physician Assistant
DX: Z20.2 Contact with and (suspected) exposure to infections with a predominantly sexual mode of transmission (principal); Z01.84 Encounter for antibody response examination
CPT/HCPCS: 36415; 86780; 86803; 87340; 87389